=== PATIENT | male | born 1950 | race Caucasian/White ===

== ENCOUNTER → 2016-06-15 | Outpatient (CLI) | payer MEDICARE, OTHER ==
[2016-06-15 11:27] LABS: CHOLESTEROL 136.05 mg/dL (0-200); Direct HDL 38 mg/dL (>40); TRIGLYCERIDES 239 mg/dL (<150)
[2016-06-15 11:38] LABS: DIRECT LDL 48 mg/dL (<100)
[2016-06-15 11:40] LABS: VLDL CHOLESTEROL 47.8 mg/dL (10-31)
== END ==
LOC: OD 09:44
PROVIDERS: ATTEND Internal Medicine Cardiovascular Disease
DX: E78.2 Mixed hyperlipidemia (principal)
CPT/HCPCS: 36415; 80061

== ENCOUNTER → 2016-09-12 | Outpatient (CLI) | payer MEDICARE, OTHER ==
[2016-09-12 10:46] LABS: ALANINE AMINOTRANSFERASE 62 U/L (21-72); ALBUMIN 4.5 g/dL (3.5-5.0); ALKALINE PHOSPHATASE 130 U/L (38-126); ANION GAP 13 (5-19); ASPARTATE AMINO TRANSFERASE 74 U/L (17-59); BILIRUBIN,DIRECT 0.6 mg/dL (0.0-0.4); BLOOD UREA NITROGEN 13 mg/dL (7-20); CARBON DIOXIDE 27 mmol/L (22-30); CHLORIDE 101 mmol/L (98-107); CHOLESTEROL 121.44 mg/dL (0-200); CREATININE RESULT 1.03 mg/dL (0.52-1.25); Direct HDL 47 mg/dL (>40); GLUCOSE 115 mg/dL (75-110); POTASSIUM 4.4 mmol/L (3.6-5.0); TOTAL PROTEIN 8.6 g/dL (6.3-8.2); TRIGLYCERIDES 151 mg/dL (<150)
[2016-09-12 10:57] LABS: DIRECT LDL 36 mg/dL (<100)
[2016-09-12 11:00] LABS: VLDL CHOLESTEROL 30.2 mg/dL (10-31)
== END ==
LOC: OD 09:17
PROVIDERS: ATTEND Internal Medicine Cardiovascular Disease
DX: E78.2 Mixed hyperlipidemia (principal); R00.2 Palpitations; Z79.899 Other long term (current) drug therapy
CPT/HCPCS: 36415; 80048; 80061; 80076; 83735

== ENCOUNTER → 2016-11-17 | Outpatient (CLI) | payer MEDICARE, OTHER ==
[2016-11-17 12:31] LABS: APPEARANCE,URINE CLEAR; BILIRUBIN,URINE NEGATIVE (NEGATIVE); GLUCOSE, URINE 50 mg/dL (NEGATIVE); KETONES,URINE NEGATIVE (NEGATIVE); LEUKOCYTE ESTERASE,URINE NEGATIVE (NEGATIVE); NITRITE,URINE NEGATIVE (NEGATIVE); PROTEIN,URINE 30 mg/dL (NEGATIVE); URINE SPECIFIC GRAVITY 1.013; UROBILINOGEN,URINE NEGATIVE mg/dL (<2.0)
[2016-11-17 12:40] LABS: HEMATOCRIT 44.9 % (37.9-51.0); HGB HCT DIFFERENCE 0.1; MEAN CORPUSCULAR HEMOGLOBIN 29.5 pg (27.0-33.4); MEAN CORPUSCULAR HGB CONC 33.3 g/dL (32.0-36.0); MEAN CORPUSCULAR VOLUME 89 fl (80-97); RED BLOOD COUNT 5.07 10^6/uL (4.35-5.55); RED CELL DISTRIBUTION WIDTH 14.4 % (11.5-14.0); WHITE BLOOD COUNT 5.9 10^3/uL (4.0-10.5)
[2016-11-17 13:10] LABS: ALANINE AMINOTRANSFERASE 45 U/L (21-72); ALBUMIN 4.7 g/dL (3.5-5.0); ALKALINE PHOSPHATASE 119 U/L (38-126); ANION GAP 15 (5-19); ASPARTATE AMINO TRANSFERASE 36 U/L (17-59); BILIRUBIN,DIRECT 0.4 mg/dL (0.0-0.4); BILIRUBIN,TOTAL 0.7 mg/dL (0.2-1.3); BLOOD UREA NITROGEN 11 mg/dL (7-20); CALCIUM 9.6 mg/dL (8.4-10.2); CARBON DIOXIDE 23 mmol/L (22-30); CHLORIDE 101 mmol/L (98-107); CREATINE KINASE 48 U/L (55-170); CREATININE RESULT 0.97 mg/dL (0.52-1.25); GLUCOSE 207 mg/dL (75-110); POTASSIUM 4.6 mmol/L (3.6-5.0); SODIUM 139.2 mmol/L (137-145); TOTAL PROTEIN 8.3 g/dL (6.3-8.2)
[2016-11-17 13:19] LABS: ERYTHROCYTE SEDIMENTATION RATE 20 mm/hr (0-20)
== END ==
LOC: OD 11:23
PROVIDERS: ATTEND Internal Medicine Cardiovascular Disease
DX: E03.9 Hypothyroidism, unspecified (principal); M79.1 Myalgia; R79.89 Other specified abnormal findings of blood chemistry; I49.3 Ventricular premature depolarization
CPT/HCPCS: 36415; 80048; 80076; 81001; 82550; 83735; 84439; 84443; 85027; 85652

== ENCOUNTER → 2017-01-09 | Outpatient (CLI) | payer MEDICARE, OTHER ==
[2017-01-09 10:51] LABS: THYROID STIMULATING HORMONE < 0.01 uIU/mL (0.47-4.68)
== END ==
LOC: OD 08:21
PROVIDERS: ATTEND Internal Medicine Cardiovascular Disease
DX: E03.9 Hypothyroidism, unspecified (principal)
CPT/HCPCS: 36415; 84439; 84443

== ENCOUNTER → 2017-03-20 | Outpatient (CLI) | payer MEDICARE, OTHER ==
[2017-03-20 10:25] LABS: ALANINE AMINOTRANSFERASE 50 U/L (21-72); ALBUMIN 4.6 g/dL (3.5-5.0); ALKALINE PHOSPHATASE 127 U/L (38-126); ASPARTATE AMINO TRANSFERASE 43 U/L (17-59); BILIRUBIN,DIRECT 0.5 mg/dL (0.0-0.4); BILIRUBIN,TOTAL 0.8 mg/dL (0.2-1.3); CHOLESTEROL 129.08 mg/dL (0-200); Direct HDL 43 mg/dL (>40); TOTAL PROTEIN 7.7 g/dL (6.3-8.2); TRIGLYCERIDES 230 mg/dL (<150)
[2017-03-20 10:35] LABS: DIRECT LDL 35 mg/dL (<100)
== END ==
LOC: OD 09:03
PROVIDERS: ATTEND Internal Medicine Cardiovascular Disease
DX: E03.9 Hypothyroidism, unspecified (principal); E78.2 Mixed hyperlipidemia; Z79.899 Other long term (current) drug therapy
CPT/HCPCS: 36415; 80061; 80076; 82553; 84443

== ENCOUNTER → 2017-05-11 | Outpatient (CLI) | payer MEDICARE, OTHER ==
[2017-05-11 10:28] LABS: ANION GAP 14 (5-19); BLOOD UREA NITROGEN 13 mg/dL (7-20); CALCIUM 10.4 mg/dL (8.4-10.2); CARBON DIOXIDE 24 mmol/L (22-30); CHLORIDE 100 mmol/L (98-107); GLUCOSE 203 mg/dL (75-110); MAGNESIUM 1.8 mg/dL (1.6-2.3); POTASSIUM 4.2 mmol/L (3.6-5.0); SODIUM 138.2 mmol/L (137-145)
== END ==
LOC: OD 08:28
PROVIDERS: ATTEND Internal Medicine Cardiovascular Disease
DX: N18.3 Chronic kidney disease, stage 3 (moderate) (principal); I49.3 Ventricular premature depolarization
CPT/HCPCS: 36415; 80048; 83735

== ENCOUNTER 2018-01-04 11:44 | Day surgery (SDC) | payer MEDICARE, OTHER ==
--- NOTE | 2018-01-03 11:10 | RADIOLOGY REPORT (SQ) ---
EXAM DESCRIPTION: CHEST PA/LATERAL COMPLETED DATE/TIME: 01/03/2018 10:36 am REASON FOR STUDY: PRE-OP COMPARISON: Chest films 10/20/2011, 12/16/2014, 12/05/2016 EXAM PARAMETERS: NUMBER OF VIEWS: two views TECHNIQUE: Digital Frontal and Lateral radiographic views of the chest acquired. RADIATION DOSE: NA LIMITATIONS: none FINDINGS: LUNGS AND PLEURA: No opacities, masses or pneumothorax. No pleural effusion. MEDIASTINUM AND HILAR STRUCTURES: No masses or contour abnormalities. HEART AND VASCULAR STRUCTURES: Stable moderate cardiomegaly BONES: Clips right upper quadrant post cholecystectomy. Lower cervical fusion hardware HARDWARE: None in the chest. OTHER: No other significant finding. IMPRESSION: No acute infiltrates. Stable moderate cardiomegaly TECHNICAL DOCUMENTATION: JOB ID: [id number] [email or web address]- All Rights Reserved Reading location - IP/workstation name: [email or web address]
--- NOTE | 2018-01-03 12:49 | EKG REPORT ---
SEVERITY:- ABNORMAL ECG - SINUS RHYTHM LEFT VENTRICULAR HYPERTROPHY : Confirmed by: Bran Topete MD 03-Jan-2018 12:48:04
[2018-01-03 13:10] LABS: ANION GAP 15 (5-19); BLOOD UREA NITROGEN 17 mg/dL (7-20); CARBON DIOXIDE 25 mmol/L (22-30); CHLORIDE 101 mmol/L (98-107); GLUCOSE 211 mg/dL (75-110); POTASSIUM 5.1 mmol/L (3.6-5.0); SODIUM 140.9 mmol/L (137-145)
[2018-01-03 13:14] LABS: HEMATOCRIT 41.5 % (37.9-51.0); HEMOGLOBIN 14.2 g/dL (13.5-17.0); MEAN CORPUSCULAR HEMOGLOBIN 30.4 pg (27.0-33.4); MEAN CORPUSCULAR HGB CONC 34.1 g/dL (32.0-36.0); MEAN CORPUSCULAR VOLUME 89 fl (80-97); PLATELET COUNT 297 10^3/uL (150-450); RED BLOOD COUNT 4.66 10^6/uL (4.35-5.55); RED CELL DISTRIBUTION WIDTH 14.8 % (11.5-14.0); WHITE BLOOD COUNT 6.6 10^3/uL (4.0-10.5)
[2018-01-03 13:38] LABS: APPEARANCE,URINE CLEAR; BILIRUBIN,URINE NEGATIVE (NEGATIVE); COLOR,URINE YELLOW; GLUCOSE, URINE 50 mg/dL (NEGATIVE); KETONES,URINE NEGATIVE (NEGATIVE); LEUKOCYTE ESTERASE,URINE NEGATIVE (NEGATIVE); NITRITE,URINE NEGATIVE (NEGATIVE); PROTEIN,URINE 30 mg/dL (NEGATIVE); UROBILINOGEN,URINE NEGATIVE mg/dL (<2.0)
[~2018-01-04 11:44] MED LIST: CEFAZOLIN 2 GM/D5W RTU 2 GM/50 ML RTUPB IV PRN; LACTATED RINGERS 1000 ML IV PRN; LIDOCAINE 0.5% INJ-PF (5 MG/ML) 50 ML SDV SUBCUT PRN
[2018-01-04] MEDS ORDERED: CEFAZOLIN 2 GM/D5W RTU 2 GM/50 ML RTUPB IV ONE (12:29)
[2018-01-04] MEDS ORDERED: METOCLOPRAMIDE HCL INJ/PF 10 MG/2 ML SDV ONE (12:33)
[2018-01-04 12:58] LABS: INTERNATIONAL RATION (INR) 0.94; PROTHROMBIN TIME 13.1 SEC (11.4-15.4)
[2018-01-04 12:59] LABS: PARTIAL THROMBOPLASTIN TIME 28.3 SEC (23.5-35.8)
[2018-01-04] MEDS ORDERED: ALBUTEROL SULFATE 0.083% NEB 2.5 MG/3 ML AMPUL NEB ONE (13:03)
[2018-01-04] MEDS ORDERED: PROPOFOL INJ 200 MG/20 ML VIAL IV ONE (13:13)
[2018-01-04] MEDS ORDERED: MIDAZOLAM 2 MG/2 ML INJ ONE (13:13)
[2018-01-04] MEDS ORDERED: FENTANYL CITRATE INJ/PF 100 MCG/2 ML AMPUL ONE (13:13)
[2018-01-04 13:15] LABS: ALANINE AMINOTRANSFERASE 59 U/L (21-72); ALBUMIN 4.1 g/dL (3.5-5.0); ALKALINE PHOSPHATASE 96 U/L (38-126); ANION GAP 11 (5-19); ASPARTATE AMINO TRANSFERASE 69 U/L (17-59); BILIRUBIN,DIRECT 0.5 mg/dL (0.0-0.4); BILIRUBIN,TOTAL 0.7 mg/dL (0.2-1.3); BLOOD UREA NITROGEN 15 mg/dL (7-20); CALCIUM 9.5 mg/dL (8.4-10.2); CARBON DIOXIDE 23 mmol/L (22-30); CHLORIDE 104 mmol/L (98-107); GLUCOSE 186 mg/dL (75-110); POTASSIUM 4.7 mmol/L (3.6-5.0); SODIUM 137.6 mmol/L (137-145); TOTAL PROTEIN 7.5 g/dL (6.3-8.2)
[2018-01-04] MEDS ORDERED: BUPIVACAINE HCL 0.5 % INJ/PF 30 ML SDV ONE (13:24)
[2018-01-04] MEDS ORDERED: LIDOCAINE 1% INJ-PF (10 MG/ML) 30 ML SDV ONE (13:24)
[2018-01-04] MEDS ORDERED: OXYCODONE-ACETAMINOPHEN 5-325 MG TABLET PO PRN (14:13)
--- NOTE | 2018-01-04 14:13 | Discharge Summary ---
Discharge Summary (SDC) - Discharge Final Diagnosis: Left middle finger mass Date of Surgery: 01/04/18 Discharge Date: 01/04/18 Condition: Good Treatment or Instructions: Schedule Follow Up w/ Dr. Andrés Hwang @ [facility] for Surgery to be seen in 10-14 days or as scheduled [place]: [place]: [place]: May remove dressing on postop day #3, keep incision covered and dry. May begin finger range of motion attempting to make full fist. Stool softener of choice when on pain medication. Prescriptions: Oxycodone HCl/Acetaminophen [Percocet 5-325 mg Tablet] 1 tab PO Q6 PRN #15 tab PRN Reason: Referrals: NEYMAR REIS NP-C [Primary Care Provider] - Respiratory Treatments at Home: Deep Breathing/Coughing Discharge Activity: Activity As Tolerated Report the Following to Your Physician Immediately: Fever over 101 Degrees, Unusual Bleeding, Redness, Swelling, Warmth, Increased Soreness
--- NOTE | 2018-01-04 14:16 | Operative Report ---
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 Patient has history of diabetes. He was treated with antibiotics which did improve his symptoms. Given the consistency and location of the mass I recommended operative treatment for excision to determine definitive diagnosis. We discussed risks and benefits of the procedure patient verbalized understanding consented for the procedure. Procedure In Detail: Patient was seen and evaluated in the preoperative holding area. The LEFT upper extremity was initialized and marked. Patient received 2g of Ancef IV for bacterial prophylaxis. Patient was taken back to the operative room where transferred to the operative table and placed under general anesthesia. Once they were adequately anesthetized a surgical team debriefing was performed ensuring all instrumentation was available, the surgical procedure was discussed with possible concerns reviewed. Digital block was performed utilizing 10 cc of 1% lidocaine without epinephrine the upper extremity was prepped with chlorhexidine and alcohol and draped in a sterile fashion. A timeout was done identifying correct patient, procedure and extremity everyone in attendance agree with this and verbalized no concerns. A digital tourniquet was placed. The radial aspect of the nail fold where the mass was located was excised and sent to pathology. No evidence of deep invasion or malignancy. The lateral nail plate which was causing a pincer deformity and irritation the underlying lateral nail fold and hyponychium was excised including the nail root and the germinal matrix to avoid regrowth. This area was then sent to microbiology for aerobic, anaerobic and fungal culture. Any remaining soft tissue was excised. Normal bleeding tissue was encountered. The area was then copiously irrigated. Tourniquet was deflated. Patient good peripheral bleeding. Xeroform and a soft dressing was placed. Sponge counts, instrument counts, needle counts counts were correct. Patient was then awoken from anesthesia. Transferred from the operating room table to the operating room stretcher. There was no intraoperative complications patient tolerated procedure well stable to PACU. Postoperative plan: Patient will follow-up the office in 2 weeks for wound check.
[2018-01-04 16:00] VITALS: BP 157/76
== END 2018-01-04 16:05 | disposition home or self-care (01) ==
LOC: OROUT 11:44
PROVIDERS: ATTEND Orthopaedic Surgery
DX: L03.012 Cellulitis of left finger (principal); Z79.01 Long term (current) use of anticoagulants; L85.9 Epidermal thickening, unspecified; J45.20 Mild intermittent asthma, uncomplicated; I69.854 Hemiplegia and hemiparesis following other cerebrovascular disease affecting left non-dominant side; Z79.4 Long term (current) use of insulin; E11.9 Type 2 diabetes mellitus without complications; Z85.820 Personal history of malignant melanoma of skin; Z87.891 Personal history of nicotine dependence; Z79.82 Long term (current) use of aspirin; Z79.899 Other long term (current) drug therapy; I47.1 Supraventricular tachycardia; J44.9 Chronic obstructive pulmonary disease, unspecified; F03.90 Unspecified dementia, unspecified severity, without behavioral disturbance, psychotic disturbance, mood disturbance, and anxiety
CPT/HCPCS: 93005; 36415 ×2; 87070; 87205; 85027; 85610; 85730; 87077; 80048; 80053; 81001; 87186; 88305 ×2; 88312 ×2; 71046; 93010; 11730; J2250; J3490 ×2; J3010; J2765; J2704; A9270; J0690; 400

== ENCOUNTER 2018-02-18 11:56 | Emergency (ER) | payer MEDICARE, OTHER ==
[2018-02-18] MEDS ORDERED: SODIUM BICARBONATE 8.4% INJ 50 MEQ/50 ML DISP.SYRIN ONE (12:00)
[2018-02-18] MEDS ORDERED: EPINEPHRINE INJ 1 MG/10 ML DISP.SYRIN ONE (12:00)
--- NOTE | 2018-02-18 13:10 | ER Document Report ---
ED Resuscitation - General Chief Complaint: Cardiac Arrest Stated Complaint: UNRESPONSIVE Time Seen by Provider: 02/18/18 13:09 Mode of Arrival: Medic Information source: Relative Notes: Patient brought to the ED by EMS for generalized weakness and went unresponsive en route per EMS. Chest compressions were started about 4 minutes prior to arrival. I spoke with the . She says that the patient had been having epigastric/L chest pain over the last few days. History of CAD with 7 stents. TRAVEL OUTSIDE OF THE [place] IN LAST 30 DAYS: No - HPI Onset: Last week Quality of pain: Fullness, Pressure Symptoms prior to event: Abdominal pain, Chest pain Activity prior to event: At rest History of substance abuse: No Associated Symptoms: None - Paramedics initial findings Unresponsive: Completely Respirations: Agonal Rhythm: PEA - Pre-hospital treatment Treatment: CPR/thumper - Related Data Allergies/Adverse Reactions: levofloxacin [From Levaquin] Allergy (Severe, Verified 01/03/18 09:20) tightness in throat, hives ziprasidone HCl [From Geodon] Allergy (Verified 01/03/18 09:20) patient unsure of reaction ziprasidone mesylate [From Geodon] Allergy (Verified 01/03/18 09:20) patient unsure of reaction Past Medical History - General Cannot obtain history due to: Unstable vital signs - Social History Smoking Status: Unknown if Ever Smoked Family History: Reviewed & Not Pertinent - Past Medical History Cardiac Medical History: Reports: Hx Coronary Artery Disease - STENTS X 7, CLOGGED CAROTID ARTERY, Hx Hypertension Denies: Hx Heart Attack Pulmonary Medical History: Reports: Hx Asthma, Hx COPD Denies: Hx Bronchitis, Hx Pneumonia Neurological Medical History: Reports: Hx Cerebrovascular Accident - 1993 - Weakness on left side . Denies: Hx Seizures Endocrine Medical History: Denies: Hx Diabetes Mellitus Type 2 Musculoskeletal Medical History: Reports Hx Arthritis - BACK, Psychiatric Medical History: Reports: Hx Depression Past Surgical History: Reports: Hx Appendectomy, Hx Bowel Surgery - 1/2 bowel removed, Hx Cholecystectomy - Immunizations Hx Diphtheria, Pertussis, Tetanus Vaccination: No Hx Pneumococcal Vaccination: 02/29/16 Review of Systems - Review of Systems -: Yes ROS unobtainable due to patient's medical condition Physical Exam - General Notes: PHYSICAL EXAMINATION: GENERAL: unresponsive. CPR in progress. HEAD: Atraumatic. EYES: Pupils fixed and dilated. ENT: vomitous in the oropharynx. LUNGS: Patient intubated. Bilateral breath sounds with bagging. HEART: No pulse. ABDOMEN: Obese. Distended. Musculoskeletal: No spontaneous range of motion. NEUROLOGICAL: No corneal reflex. Pupils fixed and dilated. No gag reflex. Course - Re-evaluation Re-evalutation: 02/18/18 13:10 Time of 1218 02/18/18 18:11 ACLS protocol was followed. Patient received 8 rounds of epi. Patient was in PEA and asystole. The patient also received 2 mg of Narcan and 1 amp of bicarb. I intubated the patient. Time of called at 1218. 02/18/18 18:14 Procedures - Intubation Orotracheal Airway evaluation: Large tongue, Obese Mallampati Classification: Class 3 Intubation method: Orotracheal Blade type: Other - Glidescope Equipment used: Glidescope ETT size: 8.0 ETT secured at: Gums Breath Sounds after Intubation: Equal End tidal CO2 confirmed: Yes Post Intubation Xray: No Intubation Complications: Vomited Discharge - Discharge Clinical Impression: Cardiorespiratory arrest Condition: Critical Disposition:
[2018-02-18 19:46] VITALS: BP 128/76
== END 2018-02-18 13:10 | disposition expired ==
LOC: ER 11:56
DX: I46.9 Cardiac arrest, cause unspecified (principal); R53.1 Weakness; R10.9 Unspecified abdominal pain; I25.10 Atherosclerotic heart disease of native coronary artery without angina pectoris; I10 Essential (primary) hypertension; J44.9 Chronic obstructive pulmonary disease, unspecified; Z86.73 Personal history of transient ischemic attack (TIA), and cerebral infarction without residual deficits; Z90.49 Acquired absence of other specified parts of digestive tract
CPT/HCPCS: 99285; 92950; 96374; 96375; 31500; J0171; J3490